=== PATIENT | female | born 1980 | race Caucasian/White ===

== ENCOUNTER 2018-06-19 05:20 | Emergency (ER) | payer BC ==
[~2018-06-19] VITALS: Ht 170.2 cm; Wt 67.1 kg
[~2018-06-19 05:20] MED LIST: ALIGN4 MG PO; DEXILANT30 MG PO; KLONOPIN0.5 MG PEG; PANTOPRAZOLE SO40 MG PO; PROZAC20 MG PO; TYLENOL WITH C1 EACH PO; VIT C PO; ZOFRAN4 MG PO
--- OUTSIDE RECORDS SUMMARY | 2018-06-19 05:32 | XMS REPORT | Clinical Summary ---
Author Author [facility] Address Unknown Phone Unavailable Care Team Providers Care Gill Tender Name Role Phone Melissa Avila MD PCP Allergies Comments Active Allergy Reactions Severity Noted Date Adhesive Tape-Silicones Rash Low 01/17/2017 Bee Pollen Rash Low 01/17/2017 [place] Dye Hives 01/17/2017 Wasp Venom Rash Low 01/17/2017 Medications End Date Status Medication Sig Dispensed Refills Start Date Active clonAZEPAM (KlonoPIN) 0.5 Take 0.25 mg 0 MG tablet by mouth 2 (two) times a day as needed for anxiety or seizures. Active ondansetron ODT (ZOFRAN Take 1 tablet 5 tablet 0 ODT) 8 MG disintegrating (8 mg total) 7 tablet by mouth every 8 (eight) hours as needed for nausea or vomiting for up to 5 doses. Active Problems Problem Noted Date Esophagitis 01/19/2017 Intractable nausea and vomiting 01/18/2017 Anxiety 01/18/2017 UTI (urinary tract infection) 01/18/2017 Irritable bowel syndrome with diarrhea 01/18/2017 Dehydration 01/17/2017 Social History Date Tobacco Use Types Packs/Day Years Used Quit: 2006 Former Smoker 2 Alcohol Use Drinks/Week oz/Week Comments Yes 1 Glasses of 1.2 1x week wine 1 Cans of beer Sex Assigned at Date Recorded Not on file Industry Job Start Date Occupation Not on file Not on file Not on file Travel End Travel History Travel Start No recent travel history available. Last Filed Vital Signs Not on file Plan of Treatment Health Maintenance Due Date Last Done Comments CERVICAL CANCER SCREENING 10/09/2003 INFLUENZA VACCINE 02/13/2018 HEPATITIS B VACCINES Aged Out No longer eligible based on patient's age to complete this topic IPV VACCINES Aged Out No longer eligible based on patient's age to complete this topic MENINGOCOCCAL VACCINE Aged Out No longer eligible based on patient's age to complete this topic Results Not on fileafter 06/18/2017 Insurance Payer Benefit Subscriber ID Type Phone Address Plan / Group [facility] xxxxxxxxx HMO/PPO THCARE CHOICE/CHO ICE + Advance Directives Patient has advance care planning documents on file. For more information, alexandre e contact: Balta Mera [address] [place] [address]
[2018-06-19] MEDS ORDERED: PANTOPRAZOLE 40 MG 10ML VIAL IV STA (06:08)
[2018-06-19] MEDS ORDERED: ONDANSETRON HCL INJ 2 MG/ML VIAL IV STA (06:08)
[2018-06-19] MEDS ORDERED: SODIUM CHLORIDE 0.9% 1000ML 1,000 ML IV ONE (06:15)
[2018-06-19] MEDS ORDERED: SODIUM CHLORIDE 0.9% 1000ML 1,000 ML IV SCH (06:15)
[2018-06-19 06:53] LABS: BASOPHILS % 0.4 % (0.0-1.0); EOSINOPHILS % 0.3 % (0.0-6.0); HEMATOCRIT 44.4 % (34.2-44.1); HEMOGLOBIN 15.2 g/dL (12.0-16.0); LYMPHOCYTES # (AUTO) 1.2 (1.0-3.2); LYMPHOCYTES % 12.2 % (18.0-39.1); MEAN CORPUSCULAR HEMOGLOBIN 30.8 pg (28-32); MEAN CORPUSCULAR HGB CONC 34.2 g/dL (31-35); MEAN CORPUSCULAR VOLUME 90.1 fL (81-99); MONOCYTES # (AUTO) 0.6 (0.2-0.8); MONOCYTES % 6.4 % (4.4-11.3); NEUTROPHILS # (AUTO) 7.7 (2.1-6.9); NEUTROPHILS % 80.4 % (38.7-80.0); PLATELET COUNT 250 x10e3/uL (140-360); RED BLOOD COUNT 4.93 x10e6/uL (3.6-5.1)
[2018-06-19 07:08] LABS: ALANINE AMINOTRANSFERASE 17 IU/L (0-55); ALBUMIN 4.9 g/dL (3.5-5.0); ALBUMIN/GLOBULIN RATIO 1.6 (0.8-2.0); ALKALINE PHOSPHATASE 65 IU/L (40-150); AMYLASE 55 U/L (25-125); ANION GAP 18.5 mmol/L (8-16); BLOOD UREA NITROGEN 10 mg/dL (7-26); BUN/CREATININE RATIO 12 (6-25); CALCIUM 10.2 mg/dL (8.4-10.2); CARBON DIOXIDE 20 mmol/L (22-29); CHLORIDE 105 mmol/L (98-107); CREATININE, SERUM 0.82 mg/dL (0.57-1.11); EST GLOMERULAR FILTRATION RATE > 60 ML/MIN (60-); GLUCOSE 93 mg/dL (74-118); LIPASE 34 U/L (8-78); POTASSIUM 3.5 mmol/L (3.5-5.1); SODIUM 140 mmol/L (136-145)
[2018-06-19 08:59] LABS: BILIRUBIN,URINE 1+ (NEGATIVE); CLARITY,URINE CLEAR (CLEAR); COLOR,URINE AMBER (YELLOW); KETONES,URINE 3+ (NEGATIVE); LEUKOCYTE ESTERASE ,URINE NEGATIVE (NEGATIVE); NITRITE,URINE NEGATIVE (NEGATIVE); PREGNANCY TEST, URINE NEGATIVE (NEGATIVE); PROTEIN,URINE DIPSTICK NEGATIVE (NEGATIVE); URINE UROBILINOGEN 0.2 mg/dL (0.2 - 1)
[2018-06-19 09:18] LABS: BACTERIA,URINE FEW /HPF; EPITHELIAL CELLS,URINE MODERATE /LPF; MUCUS,URINE MANY (RARE); RBC,URINE 0-5 /HPF (0-5)
--- NOTE | 2018-06-19 10:38 | Diagnostic Imaging Report ---
PROCEDURE:X-RAY ABDOMEN, ACUTE SERIES COMPARISON:None. INDICATIONS:ABDOMEN PAIN, VOMITING FINDINGS: BOWEL GAS PATTERN:Non-specific bowel gas pattern. Clips in the gallbladder fossa. FREE AIR:None. CALCIFICATIONS:None significant with multiple pelvic phleboliths. LUNGS:Normal for age. MEDIASTINUM:Slightly prominent ascending aorta. PLEURA:Normal. OTHER:Nothing significant. CONCLUSION:No significant abnormality. Tommy Gardner D.O. Dictated by: Tommy Gardner D.O. on 06/19/2018 at 10:47 Electronically approved by: Tommy Gardner D.O. on 06/19/2018 at 10:47
== END 2018-06-19 11:28 | disposition home or self-care (01) ==
LOC: ER 05:20
DX: R11.2 Nausea with vomiting, unspecified (principal); R19.7 Diarrhea, unspecified; R10.84 Generalized abdominal pain; R42 Dizziness and giddiness
CPT/HCPCS: 36415; 74022; 80053; 81001; 81025; 82150; 83690; 85025; 99284; J2405; J7030

== ENCOUNTER → 2018-08-09 | Day surgery (SDC) | payer BC ==
[~2018-08-09] MED LIST changes: +FENTANYL CITRATE/PF 100MCG/2 ML INJ ONE; +HYOSCYAMINE SULFATE 0.5 MG/ML INJ ONE; +LIDOCAINE HCL 2% LOCAL INJ 5 ML SDV VIAL INJ ONE; +METOCLOPRAMIDE HCL 10 MG/2ML VIAL ONE; +MIDAZOLAM HCL 2 MG/2 ML VIAL ONE; +PROPOFOL IV EMULSION 10 MG/ML 50 ML VIAL ONE
--- OUTSIDE RECORDS SUMMARY | 2018-08-09 08:15 | XMS REPORT ---
Author Author SHELL EVANS [facility] eClinicalWorks Address Unknown Phone Unavailable Care Team Providers Care Event Sales Assistant Name Role Phone SHELL EVANS CP Unavailable Allergies No Known Allergies Problems Problem Type Condition Code Onset Dates Condition Status Problem Major depressive disorder, single episode, unspecified F32.9 Active Problem YUDY (generalized anxiety disorder) F41.1 Active Problem Anxiety disorder, unspecified F41.9 Active Problem Depression, unspecified depression type F32.9 Active Problem Panic attacks F41.0 Active Problem Generalized anxiety disorder F41.1 Active Medications Medication Code System Code Instructions Start Date End Date Status Dosage Paxil [facility] 42553943749 10 mg orally once a for 2 weeks, then BID daily Mar 22, 2017 Active 1 tab(s) clonazepam [facility] 82933179887 0.5 mg orally BID as needed September 18, 2016 Active 1 tab(s) Results No Known Results Summary Purpose eClinicalWorks Submission
--- OUTSIDE RECORDS SUMMARY | 2018-08-09 08:15 | XMS REPORT ---
Author MAXIMILIAN Velasco [facility] eClinicalWorks Address Unknown Phone Unavailable Care Team Providers Care Roll Out Manager Name Role Phone MAXIMILIAN CABRERA CP Unavailable Allergies No Known Allergies Problems Problem Type Condition Code Onset Dates Condition Status Problem Major depressive disorder, single episode, unspecified F32.9 Active Problem Anxiety disorder, unspecified F41.9 Active Problem S/P cholecystectomy Z90.49 Active Problem Depression, unspecified depression type F32.9 Active Problem Generalized anxiety disorder F41.1 Active Problem Panic attacks F41.0 Active Problem YUDY (generalized anxiety disorder) F41.1 Active Medications No Known Medications Results No Known Results Summary Purpose eClinicalWorks Submission
--- OUTSIDE RECORDS SUMMARY | 2018-08-09 08:15 | XMS REPORT ---
Author Author SHELL EVANS Organization [employer]Clinical[employer] Address Unknown Phone Unavailable Care Team Providers Care Harness Placer Name Role Phone SHELL EVANS CP Unavailable [...] Instructions Start Date End Date Status Dosage Ondansetron Hydrochloride [facility] 38538091766 4 mg orally 3 times a day January 29, 2017 Active 1 tab(s) Results No Known Results Summary Purpose eClinicalWorks Submission
--- OUTSIDE RECORDS SUMMARY | 2018-08-09 08:15 | XMS REPORT ---
Author Author MAXIMILIAN CABRERA Organization [employer] Address Unknown Phone Unavailable Care Team Providers Care Strip Presser Name Role Phone MAXIMILIAN CABRERA CP Unavailable Allergies, Adverse Reactions, Alerts Substance Reaction Event Type contrast dye hives Non Drug Allergy Problems Problem Type Condition Code Onset Dates Condition Status Assessment Anxiety disorder, unspecified F41.9 Active Assessment Irritable bowel syndrome with both constipation and diarrhea K58.2 Active Problem Major depressive disorder, single episode, unspecified F32.9 Active Problem YUDY (generalized anxiety disorder) F41.1 Active Problem Anxiety disorder, unspecified F41.9 Active Problem Depression, unspecified depression type F32.9 Active Assessment Major depressive disorder, single episode, unspecified F32.9 Active Problem Panic attacks F41.0 Active Problem Generalized anxiety disorder F41.1 Active Medications Medication Code System Code Instructions Start Date End Date Status Dosage clonazepam NDC 32157336267 0.5 mg orally BID as needed September 18, 2016 Active 1 tab(s) Vitamin D3 NDC 08568509199 2000 intl units orally once a day September 26, 2016 Active 1 cap(s) Pristiq NDC 0 50mg orally QD Jul 31, 2016 January 08, 2017 Active 1 tab(s) Vital Signs Date/Time: January 08, 2017 Temperature 97.8 F Weight 161.4 lbs Height 64.5 in Respiratory Rate 16 /min Pulse 84 /min Blood Pressure Diastolic 98 mm Hg Blood Pressure Systolic 160 mm Hg BMI 27.27 Index Oximetry 96 % Results No Known Results Summary Purpose eClinicalWorks Submission
--- OUTSIDE RECORDS SUMMARY | 2018-08-09 08:15 | XMS REPORT | Clinical Summary ---
Author Author [facility] Address Unknown Phone Unavailable Care Team Providers Care Learning Officer Name Role Phone Melissa Avila MD PCP Allergies Comments Active Allergy Reactions Severity Noted Date Adhesive Tape-Silicones Rash Low 01/17/2017 Bee Pollen Rash Low 01/17/2017 [place] Dye Hives 01/17/2017 Wasp Venom Rash Low [...] CERVICAL CANCER SCREENING 10/09/2003 INFLUENZA VACCINE 02/13/2018 Results Not on fileafter 08/08/2017 Insurance Payer Benefit Subscriber ID Type Phone Address Plan / Group [facility] xxxxxxxxx HMO/PPO THCARE CHOICE/CHO ICE + Advance Directives Patient has advance care planning documents on file. For more information, alexandre whitaker contact: Gifford [facility]aker [address] [place] [address]
--- OUTSIDE RECORDS SUMMARY | 2018-08-09 08:15 | XMS REPORT ---
Author Author MAXIMILIAN CABRERA [facility] eClinicalWorks Address Unknown Phone Unavailable Care Team Providers Care Database Management System Specialist Name Role Phone MAXIMILIAN CABRERA CP Unavailable [...] YUDY (generalized anxiety disorder) F41.1 Active Medications Medication Code System Code Instructions Start Date End Date Status Dosage clonazepam [facility] 81249818463 0.5 mg orally BID as needed September 18, 2016 Active 1 tab(s) Results No Known Results Summary Purpose eClinicalWorks Submission
--- OUTSIDE RECORDS SUMMARY | 2018-08-09 08:15 | XMS REPORT ---
Author Author MAXIMILIAN CABRERA Organization [employer]ClinicalWorks Address Unknown Phone Unavailable Care Team Providers Care Program Associate Name Role Phone MAXIMILIAN CABRERA CP Unavailable [...] Instructions Start Date End Date Status Dosage Prozac [facility] 53042237882 10 mg orally once a day Apr 24, 2017 Active 1 cap(s) Results No Known Results Summary Purpose eClinicalWorks Submission
--- OUTSIDE RECORDS SUMMARY | 2018-08-09 08:15 | XMS REPORT | Continuity of Care Document ---
Author Author [facility] Address Unknown Phone Unavailable Problems Problem Status Onset Date Classification Date Reported Comments Source Major depressive disorder, single episode, unspecified Active Problem 09/22/2017 [facility] YUDY [facility] Anxiety disorder, unspecified Active Problem [facility]22[facility] Depression, unspecified depression type Active Problem 09/22/2017 [facility] Panic attacks Active Problem [facility]22[facility] Generalized anxiety disorder Active Problem 09/22[facility]2017 [facility] S/P cholecystectomy Active Problem 09[facility]22/2017 [facility] Irritable bowel syndrome with both constipation and diarrhea Active Diagnosis 04/16/2017 [facility] Drug induced insomnia Active Diagnosis 04/16/2017 [facility] Medications Medication Details Route Status Patient Instructions Ordering Provider Order Date Source Prozac 1 cap(s) orally Active 10 mg orally once a day [facility]LYN 04/24/2017 [facility] Paxil 1 tab(s) orally Active 20 mg orally once a day ROSLYN 04/09/2017 [facility] Paxil 1 tab(s) orally Active 10 mg orally once a for 2 weeks, then BID daily ROSLYN 03/22/2017 [facility] Ondansetron Hydrochloride 1 tab(s) orally Active 4 mg orally 3 times a day ROSLYN 01/29/2017 [facility] Vitamin D3 1 cap(s) orally Active 2000 intl units orally once a day ROSLYN 09/26/2016 [facility] clonazepam 1 tab(s) orally Active 0.5 mg orally BID as needed ROSLYN 09/18/2016 [facility] Pristiq 1 tab(s) orally Active 50mg orally QD ROSLYN 07/31/2016 [facility] Protonix 1 tab(s) orally Active 20 mg orally once a day [facility] Allergies, Adverse Reactions, Alerts Substance Category Reaction Severity Reaction type Status Date Reported Comments Source contrast dye Adverse Reaction hives Adverse Reaction Active 04/09/2017 [facility] Immunizations Immunization Date Given Site Status Last Updated Comments Source Results Order Name Results Value Reference Range Date Interpretation Comments Source Vital Signs Vital Sign Value Date Comments Source Temperature Oral (F) 97.4 F 04/09/2017 [facility] Weight 150 04/09/2017 [facility] Height 64.5 04/09/2017 [facility] Respitory Rate 16 04/09/2017 [facility] Diastolic (mm Hg) 82 04/09/2017 [facility] Systolic (mm Hg) 120 04/09/2017 [facility] Temperature Oral (F) 97.8 F 01/08/2017 [facility] Weight 161.4 01/08/2017 [facility] Height 64.5 01/08/2017 [facility] Respitory Rate 16 01/08/2017 [facility] Diastolic (mm Hg) 98 01/08/2017 [facility] Systolic (mm Hg) 160 01/08/2017 [facility] Encounters Location Location Details Encounter Type Encounter Number Reason For Visit Attending Provider ADM Date DC Date Status Source Procedures Procedure Code Date Perfomer Comments Source
--- OUTSIDE RECORDS SUMMARY | 2018-08-09 08:15 | XMS REPORT ---
Author Author MAXIMILIAN CABRERA Organization eClinicalWorks Address Unknown Phone Unavailable Care Team Providers Care Enterprise Systems Engineer Name Role Phone MAXIMILIAN CABRERA CP Unavailable Allergies, Adverse Reactions, Alerts Substance Reaction Event Type contrast dye hives Non Drug Allergy Problems Problem Type Condition Code Onset Dates Condition Status Assessment Drug induced insomnia F19.982 Active Assessment Generalized anxiety disorder F41.1 Active Assessment S/P cholecystectomy Z90.49 Active Assessment Irritable bowel syndrome with both [...] Date End Date Status Dosage Ondansetron Hydrochloride ND 28929682283 4 mg orally 3 times a day January 29, 2017 Active 1 tab(s) Vitamin D3 ND 55550995629 2000 intl units orally once a day September 26, 2016 Active 1 cap(s) Paxil ND 95914744878 20 mg orally once a day Apr 09, 2017 Active 1 tab(s) Paxil ND 19552008335 10 mg orally once a for 2 weeks, then BID daily Mar 22, 2017 Inactive 1 tab(s) clonazepam ND 77020229098 0.5 mg orally BID as needed September 18, 2016 Active 1 tab(s) Protonix ND 03350801601 20 mg orally once a day Active 1 tab(s) Vital Signs Date/Time: Apr 09, 2017 Temperature 97.4 F Weight 150 lbs Height 64.5 in Respiratory Rate 16 /min Pulse 66 /min Blood Pressure Diastolic 82 mm Hg Blood Pressure Systolic 120 mm Hg BMI 25.35 Index Oximetry 99 % Results No Known Results Summary Purpose eClinicalWorks Submission
--- OUTSIDE RECORDS SUMMARY | 2018-08-09 08:15 | XMS REPORT ---
Author Author MAXIMILIAN CABRERA [facility] eClinicalWorks Address Unknown Phone Unavailable Care Team Providers Care Conformal Pad Former Name Role Phone MAXIMILIAN CABRERA CP Unavailable [...]
--- OUTSIDE RECORDS SUMMARY | 2018-08-09 08:16 | XMS REPORT ---
Author Author SHELL EVANS [facility] eClinicalWorks Address Unknown Phone Unavailable Care Team Providers Care Roofing Laborer Name Role Phone SHELL EVANS CP Unavailable [...]
--- OUTSIDE RECORDS SUMMARY | 2018-08-09 08:16 | XMS REPORT ---
[facility] Address Unknown Phone Unavailable Care Team Providers Care Virtual Office Assistant Name Role Phone Harshad FAJARDO Unavailable Unavailable Problems This patient has no known problems. Allergies, Adverse Reactions, Alerts This patient has no known allergies or adverse reactions. Medications This patient has no known medications. Results Test Description Test Time Test Comments Text Results Atomic Results Result Comments ABDOMEN ACUTE SERIES W/PA CXR 2018-06-19 10:47:00 [place] [id number] Patient Name: CASTILLO ELKINS MR #: [id number] : 1980 Age/Sex: 37/F Req #: [id number] Adm Physician: Ordered by: ELISABETH FAJARDO MD Report #: [id number] Location: ER Room/Bed: Procedure: [id number] DX/ABDOMEN ACUTE SERIES W/PA CXR Exam Date: Exam Time: REPORT STATUS: Signed PROCEDURE: X-RAY ABDOMEN, ACUTE SERIES COMPARISON: None. INDICATIONS: ABDOMEN PAIN, VOMITING FINDINGS: BOWEL GAS PATTERN: Non-specific bowel gas pattern. Clips in the gallbladder fossa. FREE AIR: None. CALCIFICATIONS: None significant with multiple pelvic phleboliths. LUNGS: Normal for age. MEDIASTINUM: Slightly prominent ascending aorta. PLEURA: Normal. OTHER: Nothing significant. CONC LUSION: No significant abnormality. Onofre Parekh D.O. Dictated by: Onofre Parekh D.O. on 06/19/2018 at 10:47 Electronically approved by: Onofre Parekh D.O. on 06/19/2018 at 10:47 Dictated By: ONOFRE PAREKH DO [id number] Transcribed By: VIC on 06/19/18 1047 COPY TO: ELISABETH FAJARDO MD
--- OUTSIDE RECORDS SUMMARY | 2018-08-09 08:16 | XMS REPORT ---
Author Author MAXIMILIAN CABRERA [facility] eClinicalWorks Address Unknown Phone Unavailable Care Team Providers Care Wood Finisher Apprentice Name Role Phone MAXIMILIAN CABRERA CP Unavailable [...]
--- OUTSIDE RECORDS SUMMARY | 2018-08-09 08:16 | XMS REPORT ---
Author Author MAXIMILIAN CABRERA [facility] eClinicalWorks Address Unknown Phone Unavailable Care Team Providers Care Aeronautical Products Sales Engineer Name Role Phone MAXIMILIAN CABRERA CP [...]
[2018-08-09 12:19] VITALS: BP 149/94
--- NOTE | 2018-08-09 13:35 | Operative Report ---
DATE OF PROCEDURE: August 09, 2018 REFERRING PHYSICIAN: Dr. Brandon Summers PROCEDURES PERFORMED 1. Esophagogastroduodenoscopy with biopsies. 2. Colonoscopy. INDICATIONS FOR EGD: Upper abdominal pain and acid reflux. INDICATIONS FOR COLONOSCOPY: Lower abdominal pain and constipation. MEDICATION: Patient was done under MAC. Please see anesthesiologist's note. PROCEDURE: With the patient in left lateral decubitus position, the flexible fiberoptic Olympus gastroscope was introduced into the esophagus under direct visualization without any difficulty. There was some patchy erythema noted in the distal esophagus. The scope was then advanced with ease into the stomach. Mucosa overlying the antrum and the body revealed some patchy intense erythema and mild to moderate edema, and biopsies were obtained and sent to stain for H. pylori. Pylorus appeared to be of normal contour and shape. It was intubated with ease. The scope was advanced all the way to the 2nd portion of the duodenum. Biopsies were obtained from the proximal 2nd portion and the duodenal bulb to rule out sprue. The scope was then withdrawn back into the stomach and retroflexed. Mucosa overlying the fundus and cardia appeared to be within normal limits. The scope was then straightened out. It was subsequently withdrawn. Patient tolerated the procedure well. IMPRESSION 1. Distal esophagitis, mild. 2. Gastritis, biopsied. Biopsies sent to stain for Helicobacter pylori. 3. Rule out sprue. PLAN: Follow up histology. Initiate Dexilant 60 mg 1 p.o. q.a.m. a.c. Patient was then turned around. After adequate location of the anal canal, a flexible fiberoptic Olympus colonoscope was inserted into the rectum with ease and advanced all the way to the cecum. It was then withdrawn slowly. Mucosa overlying the cecum, ascending colon, transverse, descending, sigmoid, and rectum grossly appeared within normal limits other than for diverticular disease. The scope was then retroflexed into the distal rectum and moderate size internal hemorrhoids were noted, none of which was actively bleeding. The scope was then straightened out. It was subsequently withdrawn. Patient tolerated the procedure well. IMPRESSION 1. Diverticulosis. 2. Internal hemorrhoids, none actively bleeding. PLAN: Follow up histology. Initiate high-fiber and low-fat diet. Initiate high-fiber supplement. Start VSL #3 one p.o. daily. Patient might benefit from a followup colonoscopy in 10 years. Job#: [id number] RI cc:BRANDON SUMMERS MD
== END | disposition home or self-care (01) ==
LOC: OR 08:13
PROVIDERS: ATTEND Internal Medicine Gastroenterology
DX: K58.1 Irritable bowel syndrome with constipation (principal); K29.70 Gastritis, unspecified, without bleeding; K21.9 Gastro-esophageal reflux disease without esophagitis; K20.9 Esophagitis, unspecified; K57.30 Diverticulosis of large intestine without perforation or abscess without bleeding; K64.8 Other hemorrhoids; F41.9 Anxiety disorder, unspecified; Z91.048 Other nonmedicinal substance allergy status
CPT/HCPCS: 43239; 45378; 81025; J1980; J2001; J2250; J2704; J2765

== ENCOUNTER → 2020-01-29 | Outpatient (CLI) | payer BC ==
[~2020-01-29] MED LIST changes: +DIATRIZOATE MEGL/DIATRIZOA SOD 30 ML BTL PO ONE; -FENTANYL CITRATE/PF 100MCG/2 ML INJ ONE; -HYOSCYAMINE SULFATE 0.5 MG/ML INJ ONE; +IOPAMIDOL 370 MG/ML 200 ML INFUS..BTL INJ ONE; -LIDOCAINE HCL 2% LOCAL INJ 5 ML SDV VIAL INJ ONE; -METOCLOPRAMIDE HCL 10 MG/2ML VIAL ONE; -MIDAZOLAM HCL 2 MG/2 ML VIAL ONE; -PROPOFOL IV EMULSION 10 MG/ML 50 ML VIAL ONE; +SODIUM CHLORIDE 0.9% 50ML 50 ML ONE
--- NOTE | 2020-01-29 16:13 | Diagnostic Imaging Report ---
CT of the abdomen and pelvis, with contrast. History: Left lower quadrant abdominal pain. Comparison: None available. Technique: Multidetector CT scanning of the abdomen and pelvis was performed from the level of the lung bases to the inferior pubic rami after intravenous and oral administration of contrast. Coronal and sagittal multiplanar reformations were obtained. RADIATION DOSE: Total DLP: 473.68 mGy*cm Dose modulation, iterative reconstruction, and/or weight based adjustment of the mA/kV was utilized to reduce the radiation dose to as low as reasonably achievable. FINDINGS: The visualized intrathoracic contents demonstrate no significant abnormalities. Partially visualized bilateral breast prostheses noted. The liver is normal in size and attenuation without evidence for focal abnormality. The gallbladder is surgically absent. There is no biliary ductal dilatation. The stomach, spleen, pancreas, and bilateral adrenal glands are unremarkable. The kidneys are normal in size and location and enhance symmetrically. There is no evidence for nephrolithiasis or hydronephrosis. No ureteral stone or dilatation is appreciated. The urinary bladder demonstrates no significant abnormalities. Small amount of fluid noted within the endometrial canal, recommend correlation with menstrual cycle. The uterus and adnexa are otherwise unremarkable. The abdominal aorta is normal course and caliber. The IVC is unremarkable. The visualized loops of small and large bowel demonstrate no evidence of obstruction or inflammation. The appendix is visualized and appears unremarkable. There is no ascites or intraperitoneal free air. No abnormally enlarged lymph nodes are identified within the abdomen or pelvis. The osseous structures demonstrate no evidence for acute fracture or destructive process. The extraperitoneal soft tissues are unremarkable. IMPRESSION: No acute abdominopelvic process identified to correlate with the patient's abdominal pain. Status post cholecystectomy. Signed by: Dr. Cali Calvillo MD on 01/29/2020 4:10 PM
== END ==
LOC: CT 10:28
PROVIDERS: ATTEND Internal Medicine Gastroenterology
DX: K57.00 Diverticulitis of small intestine with perforation and abscess without bleeding (principal)
CPT/HCPCS: 74177; Q9967